=== PATIENT | female | born 1945 | race Caucasian/White ===

== ENCOUNTER 2016-11-17 09:56 | Emergency (ER) | payer MEDICARE ==
[2016-11-17 10:46] VITALS: BP 145/77
--- NOTE | 2016-11-17 11:05 | UC ---
Respiratory Complaint HPI - HPI Summary HPI Summary: "11/13 pt began with a sore throat, nose itching, sneezing. now c/o chest congestion and painful cough". + h/o asthma - takes advair and alb prn. Used albuterol prior to coming in with relief. she has been using it regularly while sick. No fevers or chills. + wheezing. - History of Current Complaint Chief Complaint: UCGeneralIllness Stated Complaint: UPPER RESPIRATORY Time Seen by Provider: 11/17/16 11:03 - Allergies/Home Medications Allergies/Adverse Reactions: Allergies Allergy/AdvReac Type Severity Reaction Status Date / Time Levofloxacin Allergy Swelling Verified 11/17/16 10:40 Sulfa Antibiotics Allergy Hives Verified 11/17/16 10:41 Home Medications: Home Medications Albuterol HFA INHALER* [Ventolin HFA Inhaler*] 1 11/17/16 [History] Fluticasone-Salmeterol 500-50* [Advair Diskus 500-50*] 11/17/16 [History] PMH/Surg Hx/FS Hx/Imm Hx Previously Healthy: Yes Cardiovascular History Of: Denies: Pacemaker/ICD Respiratory History Of: Reports: Asthma - Surgical History Surgical History: Yes Surgery Procedure, Year, and Place: RT KNEE ARTHROSCOPY FOR TORN MENISCUS 2001 AT [facility], TMJ, TONSILS,TUBAL, JAW SURGERY - Family History Known Family History: Negative: Respiratory Disease - no asthma - Social History Alcohol Use: Occasionally Substance Use Type: None Smoking Status (MU): Never Smoked Tobacco Review of Systems Constitutional: Negative, Fatigue Skin: Negative Eyes: Negative ENT: Negative, Sore Throat Respiratory: Cough Cardiovascular: Negative Gastrointestinal: Negative Genitourinary: Negative Motor: Negative Neurovascular: Negative Musculoskeletal: Negative Neurological: Negative Psychological: Negative All Other Systems Reviewed And Are Negative: Yes Physical Exam Triage Information Reviewed: Yes Appearance: Well-Appearing, No Pain Distress, Well-Nourished Vital Signs: Initial Vital Signs Temp 99.8 F 11/17/16 10:32 Pulse 93 11/17/16 10:32 Resp 18 11/17/16 10:32 BP 145/77 11/17/16 10:32 Pulse Ox 95 11/17/16 10:32 Vital Signs Reviewed: Yes Eye Exam: Normal ENT Exam: Normal ENT: Positive: Pharyngeal erythema - +PND, no exudate., TMs normal, Other: - no sinus tenderness. Negative: Tonsillar swelling, Tonsillar exudate, Muffled/ hoarse voice Dental Exam: Normal Neck exam: Normal Neck: Positive: Supple, Nontender, No Lymphadenopathy Respiratory Exam: Normal Respiratory: Positive: Lungs clear, Decreased breath sounds. Negative: No respiratory distress, No accessory muscle use, Crackles, Rhonchi, Stridor, Wheezing Cardiovascular Exam: Normal Cardiovascular: Positive: RRR, No Murmur, Pulses Normal, Brisk Capillary Refill Abdomen Description: Positive: Nontender, Soft Musculoskeletal Exam: Normal Neurological Exam: Normal Psychological Exam: Normal Skin Exam: Normal UC Diagnostic Evaluation - Laboratory O2 Sat by Pulse Oximetry: 95 Respiratory Course/Dx - Course Course Of Treatment: She has used prednisone without difficulty in past. We discusse risks of prednisone including but not limited to anxiety, agitation, insomnia, GI upset, elevated blood pressures and blood sugar readings, adrenal crisis and avascular necrosis of the hip. Low dose medrol dose pack givem. use alb q4-6 hrs while sick. f/u if sx worsen. - Differential Dx/Diagnosis Differential Diagnosis/HQI/PQRI: Asthma, Bronchitis, Lower Resp Infection, Sinusitis Provider Diagnoses: asthmatic bronchitis Discharge - Discharge Plan Condition: Stable Disposition: HOME Prescriptions: Amoxicillin (*) [Amoxicillin 875 MG (*)] 875 mg PO BID #20 tab Methylprednisolone [Medrol Dosepak 4 MG*] 4 mg PO DAILY #1 jose a Patient Education Materials: Asthma (ED), Acute Bronchitis (ED) Referrals: Dm Godfrey MD [Primary Care Provider] - 3 Days Additional Instructions: Make sure to take a probiotic daily while you are on the antibiotic.
== END 2016-11-17 11:19 | disposition home or self-care (01) ==
LOC: UCCORT 09:56
DX: J45.909 Unspecified asthma, uncomplicated (principal); Z88.1 Allergy status to other antibiotic agents
CPT/HCPCS: 99211; G0463

== ENCOUNTER 2017-04-04 16:30 | Emergency (ER) | payer MEDICARE ==
[2017-04-04 17:21] VITALS: BP 136/76
--- NOTE | 2017-04-04 17:45 | UC ---
Respiratory Complaint HPI - HPI Summary HPI Summary: Patient is a 71yo F with a hx of COPD/Bronchitis with a 1 week history of cough , congestion, sputum production and sinus pressure. Hx of sinusitis, most recently treated in October with antibiotics. She is a patient of . CT scan of the chest from October is most recent imaging study. Denies fevers, sweats, chills or other signs of a systemic illness. She has not been taking cough medication because she wants to continue to cough up the phlegm. Denies head pressure. Denies neck pain or stiff neck. - History of Current Complaint Chief Complaint: UCGeneralIllness Stated Complaint: UPPER RESPIRATORY Time Seen by Provider: 04/04/17 17:10 Hx Obtained From: Patient Hx Last Menstrual Period: N/A ?: No Onset/Duration: Sudden Onset Timing: Constant Severity Initially: Moderate Severity Currently: Moderate Pain Intensity: 0 Pain Scale Used: 0-10 Numeric Character: Cough: Productive Associated Signs And Symptoms: Positive: Dyspnea, Nasal Congestion, Sinus Discomfort - Risk Factors Pulmonary Embolism Risk Factors: Negative Cardiac Risk Factors: Negative Pseudomonas Risk Factors: Negative Tuberculosis Risk Factors: Negative - Allergies/Home Medications Allergies/Adverse Reactions: Allergies Allergy/AdvReac Type Severity Reaction Status Date / Time Levofloxacin Allergy Swelling Verified 04/04/17 17:22 Sulfa Antibiotics Allergy Hives Verified 04/04/17 17:22 Home Medications: Home Medications Fluticasone/Vilanterol MDI(NF) [Breo Ellipta MDI (NF)] 1 puff INH DAILY [History Confirmed 04/04/17] PMH/Surg Hx/FS Hx/Imm Hx Previously Healthy: Yes - Surgical History Surgical History: Yes Surgery Procedure, Year, and Place: RT KNEE ARTHROSCOPY FOR TORN MENISCUS 2001 AT [facility], TMJ, TONSILS,TUBAL, JAW SURGERY - Family History Known Family History: Negative: Respiratory Disease - no asthma Family History: respiratory disease - Social History Alcohol Use: None Substance Use Type: None Smoking Status (MU): Never Smoked Tobacco Have You Smoked in the Last Year: No - Immunization History Most Recent Influenza Vaccination: none Review of Systems Constitutional: Negative Skin: Negative Respiratory: Cough Cardiovascular: Negative Motor: Negative Neurovascular: Negative Neurological: Negative Psychological: Negative Is Patient Immunocompromised?: No All Other Systems Reviewed And Are Negative: Yes Physical Exam Triage Information Reviewed: Yes Appearance: Well-Appearing, Well-Nourished Vital Signs: Initial Vital Signs Temp 97.6 F 04/04/17 17:17 Pulse 82 04/04/17 17:17 Resp 16 04/04/17 17:17 BP 136/76 04/04/17 17:17 Pulse Ox 97 04/04/17 17:17 Vital Signs Reviewed: Yes Eye Exam: Normal Eyes: Positive: Conjunctiva Clear ENT Exam: Normal ENT: Positive: Normal ENT inspection Neck exam: Normal Neck: Positive: Supple, No Lymphadenopathy Respiratory Exam: Normal Respiratory: Positive: Chest non-tender, Lungs clear Cardiovascular Exam: Normal Musculoskeletal Exam: Normal Musculoskeletal: Positive: Strength Intact Neurological Exam: Normal Neurological: Positive: Alert Psychological: Positive: Normal Response To Family, Age Appropriate Behavior Skin Exam: Normal Diagnostic Evaluation - Laboratory O2 Sat by Pulse Oximetry: 97 Respiratory Course/Dx - Course Course Of Treatment: Patient evaluated for cough and congestion. She declines chest xray. Declines cough medication. She is willing to take antibiotic and will try augmentin. She is allergic to sulfa and levaquin. She denies other symptoms including fevers, sweats or chills. This is likely bronchitis with sinusitis, but I cannot r/o PNA without chest xray. Hx of COPD with 1 week cough. She again declines, but given strict return precautions. She is Ok with plan. - Differential Dx/Diagnosis Differential Diagnosis/HQI/PQRI: Bronchitis, Sinusitis Provider Diagnoses: Sinusitis/Bronchitis Discharge - Discharge Plan Condition: Stable Disposition: HOME Prescriptions: Amoxicillin/Clavulanate TAB* [Augmentin TAB 875*] 875 mg PO BID #14 tab Patient Education Materials: Sinusitis (ED), Chronic Bronchitis (ED), Warm Compress or Soak (ED) Referrals: Dm Godfrey MD [Primary Care Provider] - Additional Instructions: Humidifier in the home will help. Tylenol for discomfort. Take all medications as directed. Symptoms should resolve in 1-3 weeks. If symptoms become worse, please come back to or go to the ED. Honey and lemon hot tea Rest plenty of fluids. Take the antibiotic as directed Please return if you develop a fever or worsening cough or shortness of breath
== END 2017-04-04 17:42 | disposition home or self-care (01) ==
LOC: UCCORT 16:30
DX: J40 Bronchitis, not specified as acute or chronic (principal); J32.9 Chronic sinusitis, unspecified; Z88.2 Allergy status to sulfonamides; Z88.1 Allergy status to other antibiotic agents
CPT/HCPCS: 99212; G0463

== ENCOUNTER 2017-04-24 16:37 | Emergency (ER) | payer MEDICARE ==
[2017-04-24 17:08] VITALS: BP 135/81
[2017-04-24] MEDS ORDERED: Lidocaine 1% INJ* 10 MG/ML 30 ML SDV INJ ONE (17:23)
[2017-04-24] MEDS ORDERED: Lidocaine 1%* 5 ML VIAL ONE (17:25)
--- NOTE | 2017-04-24 17:44 | UC ---
Skin Complaint HPI - HPI Summary HPI Summary: Today she had a small vein of the left leg start bleeding. Jazmin has had bleeding there in the past well when she nicked it with a razor while shaving her legs. she has no bleeding disorders and is not on any blood thinners. No other bleeding from other locations and no fevers or night sweats. No unintentional wt loss. - History of Current Complaint Chief Complaint: UCLowerExtremity Time Seen by Provider: 04/24/17 17:14 Stated Complaint: LEFT LEG VEIN BLEED Hx Obtained From: Patient Hx Last Menstrual Period: n/a Onset/Duration: Sudden Onset, Lasting Hours Skin Exposure Onset/Duration: Hours Ago Timing: Constant Onset Severity: Moderate Current Severity: Moderate Location: Discrete Aggravating Factor(s): Nothing Alleviating Factor(s): Other - compression dressing. Associated Signs & Symptoms: Positive: Negative - Allergy/Home Medications Allergies/Adverse Reactions: Allergies Allergy/AdvReac Type Severity Reaction Status Date / Time Levofloxacin Allergy Swelling Verified 04/24/17 17:08 Sulfa Antibiotics Allergy Hives Verified 04/24/17 17:08 Review of Systems Skin: Other - bleeding varicose vein. All Other Systems Reviewed And Are Negative: Yes PMH/Surg Hx/FS Hx/Imm Hx Previously Healthy: Yes - Surgical History Surgical History: Yes Surgery Procedure, Year, and Place: RT KNEE ARTHROSCOPY FOR TORN MENISCUS 2002 AT [facility], TMJ, TONSILS,TUBAL, JAW SURGERY - Family History Known Family History: Positive: Other - No bleeding disorders. Negative: Respiratory Disease - no asthma Family History: respiratory disease - Social History Occupation: Employed Full-time Alcohol Use: Rare Substance Use Type: None Smoking Status (MU): Never Smoked Tobacco Have You Smoked in the Last Year: No - Immunization History Most Recent Influenza Vaccination: none Physical Exam Triage Information Reviewed: Yes Appearance: Well-Appearing, No Pain Distress, Well-Nourished Vital Signs: Initial Vital Signs Temp 98.4 F 04/24/17 17:03 Pulse 74 04/24/17 17:03 Resp 18 04/24/17 17:03 BP 135/81 04/24/17 17:03 Pulse Ox 97 04/24/17 17:03 Vital Signs Reviewed: Yes ENT: Positive: Normal ENT inspection Neck exam: Normal Neck: Positive: Supple, Nontender, No Lymphadenopathy Respiratory Exam: Normal Respiratory: Positive: Chest non-tender, Lungs clear, Normal breath sounds, No respiratory distress, No accessory muscle use Cardiovascular: Positive: RRR, No Murmur, Pulses Normal Abdomen Description: Positive: Nontender, No Organomegaly, Soft Musculoskeletal Exam: Normal Musculoskeletal: Positive: Strength Intact, ROM Intact, No Edema Neurological Exam: Normal Neurological: Positive: Alert, Muscle Tone Normal. Negative: Fatigued Psychological: Positive: Age Appropriate Behavior Skin Exam: Other - left medial ankle small bleeding vein. Laceration Repair - Laceration Repair 1 Description: Linear Laceration Size After Repair: Length (cm) - <1mm small bleeding varicose vein. Modified For Repair: No Type Injection: Local Anesthesia Used: 1.0% Lido Cleansing Completed Via Routine Prep: Yes Irrigation With Pressure Irrigation Device: No Closure Material: Sutures Closure Method: Single Layer Suture Of: Skin Suture Type: Prolene - 5-0. one single interrupted. Course/Dx - Diagnoses Provider Diagnoses: bleeding vein. suture repair. Discharge - Discharge Plan Condition: Good Disposition: HOME Patient Education Materials: Varicose Veins (ED) Referrals: Dm Godfrey MD [Primary Care Provider] - 3 Days Additional Instructions: dressing change every day and keep covered suture removal in one day.
== END 2017-04-24 17:56 | disposition home or self-care (01) ==
LOC: UCCORT 16:37
DX: I83.892 Varicose veins of left lower extremity with other complications (principal); Z88.1 Allergy status to other antibiotic agents; Z88.2 Allergy status to sulfonamides
CPT/HCPCS: 12001; 99211; G0463; J2001

== ENCOUNTER 2017-04-30 16:37 | Emergency (ER) | payer MEDICARE ==
[2017-04-30 17:39] VITALS: BP 151/62
--- NOTE | 2017-04-30 18:00 | UC ---
HPI Wound/Suture Re-check - HPI Summary HPI Summary: patient has suture placed in the inner left leg 5 days ago. site is asymptomatic - History Of Current Complaint Chief Complaint: UCLaceration Stated Complaint: SUTURE REMOVAL Time Seen by Provider: 04/30/17 17:35 Hx Obtained From: Patient Hx Last Menstrual Period: n/a Onset/Duration: Sudden Onset, Lasting Days Severity: Mild - Allergies/Home Medications Allergies/Adverse Reactions: Allergies Allergy/AdvReac Type Severity Reaction Status Date / Time Levofloxacin Allergy Swelling Verified 04/30/17 17:39 Sulfa Antibiotics Allergy Hives Verified 04/30/17 17:39 Home Medications: Home Medications Ojhacaz-Yaoqmozzimoee-Iucrucsa [Excedrin Extra Strength] 1 tab PO ONCE PRN 04/30 [History Confirmed 04/30/17] Multiple Vitamins W/ Minerals [Multivitamin Adults] 1 tab PO DAILY 04/30/17 [ History Confirmed 04/30/17] PMH/Surg Hx/FS Hx/Imm Hx Previously Healthy: Yes - Surgical History Surgical History: Yes Surgery Procedure, Year, and Place: RT KNEE ARTHROSCOPY FOR TORN MENISCUS 2001 AT [facility], TMJ, TONSILS,TUBAL, JAW SURGERY - Family History Known Family History: Positive: Other - No bleeding disorders. Negative: Respiratory Disease - no asthma Family History: respiratory disease - Social History Alcohol Use: Rare Substance Use Type: None Smoking Status (MU): Never Smoked Tobacco Have You Smoked in the Last Year: No - Immunization History Most Recent Influenza Vaccination: none Most Recent Tetanus Shot: unknown Review of Systems Constitutional: Negative Skin: Other - 1 stitch Eyes: Negative ENT: Negative Respiratory: Negative Cardiovascular: Negative Gastrointestinal: Negative Genitourinary: Negative Motor: Negative Neurovascular: Negative Musculoskeletal: Negative Neurological: Negative Psychological: Negative Is Patient Immunocompromised?: No All Other Systems Reviewed And Are Negative: Yes Physical Exam Triage Information Reviewed: Yes Appearance: Well-Appearing, No Pain Distress, Well-Nourished Vital Signs: Initial Vital Signs Temp 97.3 F 04/30/17 17:31 Pulse 65 04/30/17 17:31 Resp 18 04/30/17 17:31 BP 151/62 04/30/17 17:31 Vital Signs Reviewed: Yes Eye Exam: Normal ENT Exam: Normal Dental Exam: Normal Neck exam: Normal Respiratory Exam: Normal Cardiovascular Exam: Normal Abdominal Exam: Normal Bowel Sounds: Positive: Present Musculoskeletal Exam: Normal Neurological Exam: Normal Psychological Exam: Normal Skin: Positive: Other - 1 stich in right ankle non red, non tender Course/Dx - Course Course Of Treatment: hx obtained, exam performed ,meds reviewed, suture removed - Differential Dx - Laceration/Wound Provider Diagnoses: suture removal Discharge - Discharge Plan Condition: Stable Disposition: HOME Patient Education Materials: Stitches Removal (ED) Referrals: Dm Godfrey MD [Primary Care Provider] - Additional Instructions: 1. allow the area to stay free from friction of the pant legs, 2. NO need for any cream or ointment, may cover with a bandaid if needed.
== END 2017-04-30 18:02 | disposition home or self-care (01) ==
LOC: UCCORT 16:37
DX: Z48.02 Encounter for removal of sutures (principal); Z88.1 Allergy status to other antibiotic agents; Z88.2 Allergy status to sulfonamides

== ENCOUNTER 2018-06-26 10:35 | Emergency (ER) | payer MEDICARE ==
[2018-06-26 10:49] VITALS: BP 162/85
--- NOTE | 2018-06-26 11:00 | UC ---
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 She tells me that she was moving firewood around and a piece of stray wood lacerated his left palm. Washed the area and applied pressure and came to . Unsure date of last tetanus. - History Of Current Complaint Chief Complaint: UCLaceration Stated Complaint: HAND LAC Time Seen by Provider: 06/26/18 10:59 Hx Obtained From: Patient Hx Last Menstrual Period: n/a Laceration Location: Hand Severity: Mild Pain Intensity: 2 Pain Scale Used: 0-10 Numeric - Allergies/Home Medications Allergies/Adverse Reactions: Allergies Allergy/AdvReac Type Severity Reaction Status Date / Time levofloxacin Allergy Swelling Verified 06/26/18 10:49 Sulfa (Sulfonamide Allergy Hives Verified 06/26/18 10:49 Antibiotics) PMH/Surg Hx/FS Hx/Imm Hx Respiratory History: COPD, Asthma - Surgical History Surgical History: Yes Surgery Procedure, Year, and Place: RT KNEE ARTHROSCOPY FOR TORN MENISCUS 2002 AT [facility], TMJ, TONSILS,TUBAL, JAW SURGERY - Family History Known Family History: Positive: Respiratory Disease - Social History Occupation: Retired Lives: With Family Alcohol Use: Rare Substance Use Type: None Smoking Status (MU): Never Smoked Tobacco Have You Smoked in the Last Year: No - Immunization History Most Recent Influenza Vaccination: none Most Recent Tetanus Shot: unknown Review of Systems All Other Systems Reviewed And Are Negative: Yes Constitutional: Positive: Negative Skin: Positive: Other - Laceration left palm Respiratory: Positive: Negative Cardiovascular: Positive: Negative Neurovascular: Positive: Negative Neurological: Positive: Negative Psychological: Positive: Negative Physical Exam - Summary Physical Exam Summary: GENERAL: NAD. WDWN. No pain distress. SKIN: LEFT PALM: Minor superficial laceration on palm at base of 4th digit 4mm stellate. Well approximated at rest. Clean wound. NECK: Supple. Nontender. No lymphadenopathy. CHEST: No accessory muscle use. Breathing comfortably and in no distress. CV: Pulses intact. Cap refill <2seconds NEURO: Alert. PSYCH: Age appropriate behavior. Triage Information Reviewed: Yes Vital Signs: Initial Vital Signs Temp 98.3 F 06/26/18 10:46 Pulse 84 06/26/18 10:46 Resp 16 06/26/18 10:46 BP 162/85 06/26/18 10:46 Pulse Ox 100 06/26/18 10:46 Vital Signs Reviewed: Yes Laceration Repair - Laceration Repair 1 Description: Stellate Laceration Size After Repair: Length (cm) - 0.4 Modified For Repair: No Cleansing Completed Via Routine Prep: Yes Closure Material: Skin Adhesive Laceration Course/Dx - Course/Dx Course Of Treatment: Wound was cleansed with NS. Well approximated at rest and does not open with flexion/extension. Dermabond applied. tdap updated today. Wound bandaged with a band-aid. - Diagnosis Provider Diagnosis: Laceration of left palm Discharge - Sign-Out/Discharge Documenting (check all that apply): Patient Departure All imaging exams completed and their final reports reviewed: No Studies - Discharge Plan Condition: Stable Disposition: HOME Patient Education Materials: Laceration (ED), Skin Adhesive Care (ED) Referrals: Yesenia Cook MD [Primary Care Provider] - Additional Instructions: If you develop a fever, shortness of breath, chest pain, new or worsening symptoms - please call your PCP or go to the ED. Your blood pressure was high at todays visit. Please see your primary provider within 4 weeks for recheck and re-evaluation. Keep the area covered with a band-aid until well healed - Billing Disposition and Condition Condition: STABLE Disposition: Home - Attestation Statements Provider Attestation: I was available for consult. This patient was seen by the JUAN. The patient was not presented to, seen by, or examined by me. -Yonatan
[2018-06-26] MEDS: Tetan/Diph/Pertus SYR(Tdap)* 0.5 ML SYR(BOOSTRIX) use SYR IM ONE (11:07)
== END 2018-06-26 11:20 | disposition home or self-care (01) ==
LOC: UCEAST 10:35
DX: W45.8XXA Other foreign body or object entering through skin, initial encounter (principal); Y93.89 Activity, other specified; Y92.009 Unspecified place in unspecified non-institutional (private) residence as the place of occurrence of the external cause; S61.412A Laceration without foreign body of left hand, initial encounter; Z88.1 Allergy status to other antibiotic agents; Z88.2 Allergy status to sulfonamides
CPT/HCPCS: 12001; 90471; 90715; 99212; G0463

== ENCOUNTER 2019-08-17 10:24 | Emergency (ER) | payer MEDICARE ==
--- OUTSIDE RECORDS SUMMARY | 2019-08-17 10:43 | XMS REPORT | Continuity of Care Document ---
:1945 External Reference #:[id number] Author Name Manuel Peace M.D. Address [address] [place] [id number] Care Team Providers Name Role Phone Yesenia Cook M.D. - Internal Care Team Information Lining Repairer [phone] Medicine Problems Active Problems Provider Date Asthma Onset: Arthritis Onset: Crystalline deposits in vitreous Katie Crowder O.D. Onset: 12/17/2016 Nuclear senile cataract Katie Crowder O.D. Onset: 12/17/2016 Benign neoplasm of choroid Katie Crowder O.D. Onset: 12/17/2016 Social History Type Date Description Comments Sex Unknown ETOH Use Rarely consumes alcohol Tobacco Use Start: Unknown Patient has never smoked Recreational Drug Use Denies Drug Use Smoking Status Reviewed: 07/14/19 Patient has never smoked Allergies, Adverse Reactions, Alerts Active Allergies Reaction Severity Comments Date Sulfa 12/15/2016 Levothyroxine 05/05/2018 Medications Active Medications SIG Qnty Indications Ordering Provider Date Refresh Optive as needed Katie Haddad 05/04/2018 0.5-0.9% Sacha Crowder Solution Ventolin HFA Dm Godfrey 108(90Base) M.D. mcg/Act Aerosol Multivitamin Adult Unknown Tablets Breo Ellipta Inhale 1 puff By Unknown Mouth Every Day 100-25mcg/Inh Aerosol Aspirin Adult Low Dose daily Unknown 81mg Tablets DR Albuterol Sulfate HFA Karen Nash M.D. 108(90Base) mcg/Act Aerosol Albuterol Sulfate Inhale The Unknown Contents Of 1 Vial (2.5mg/3ML) 0.083% Via Nebulizer Four Nebulizer Times Daily as Needed Immunizations Description No Information Available Vital Signs Description No Information Available Results Description No Information Available Procedures Description No Information Available Medical Devices Description No Information Available Encounters Description No Information Available Assessments Date Code Description Provider 07/14/2019 H25.13 Age-related nuclear cataract, bilateral Manuel Peace M.D. 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 Plan of Treatment 07/14/2019 - Manuel Peace M.D.H25.13 Age-related nuclear cataract, bilateralComments:Smoking can increase the risk of developing or worsening any eye related disease, as well as affect your overall health. If you are a smoker , we strongly recommend that you quit.If you are not a smoker, we strongly recommend that you do not start. You have been diagnosed with cataracts. If you are happy with your vision as it is now, then we will see you at your next scheduled appointment. If you feel like your vision is getting worse before your scheduled appointment, please call [facility] at [phone].Follow up:1 Year Follow Up DFE You can expect to have your eyes dilated at your next visit. If Dr. Peace orders any additional testing, it may require extra time. We recommend that you bring sunglasses, as dilation drops often make you light sensitive until they wear off. We always recommend you bring someone to drive you home if you are uncomfortable driving with your eyes dilated. If you have any questions before your next visit, feel free to call our office at .H43.23 Crystalline deposits in vitreous body, [id number] Benign neoplasm of left choroidComments:You have a nevus in your left eye. This is similar to a mole on your skin. Typically this will not change, but I will monitor it. Functional Status Description No Information Available Mental Status Description No Information Available Referrals Description No Information Available
--- OUTSIDE RECORDS SUMMARY | 2019-08-17 10:43 | XMS REPORT | Continuity of Care Document ---
:1945 External Reference #:[id number] Author Name Karen Nash MD (transmitted by agent of provider Loretta Burgos) Address [address], [address] [place] [address] Care Team Providers Name Role Phone Yesenia Cook MD - Internal Care Team Information Cigar Roller Medicine Problems Active Problems Provider Date Acute bronchitis due to Hemophilus Ludwig Danielle M.D. 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/2018 Social History Type Date Description Comments Sex Unknown Tobacco Use Start: Unknown Never Smoked Cigarettes Tobacco Use Start: Unknown Never Smoked Cigars Tobacco Use Start: Unknown Never Smoked A Pipe Smoking Status Reviewed: 07/03/19 Never Smoked A Pipe Smokeless Tobacco Never Used Smokeless Tobacco ETOH Use Rarely consumes alcohol Tobacco Use Start: Unknown Patient has never smoked Recreational Drug Use Denies Drug Use Exercise Type/Frequency Exercises regularly 3x week Allergies, Adverse Reactions, Alerts Active Allergies Reaction Severity Comments Date Sulfa Antibiotics Urticaria Urticaria 07/07/2015 Levofloxacin joint pain/swelling Joint pain swelling 12/20/2015 Medications Active Medications SIG Qnty Indications Ordering Date Provider Oxygen please use o2 at 1units R09.02 Karen Nash, 07/03/2019 Misc 2l/min during MD exertion, pls provide pt with portable o2 concentrator Prednisone 2 tabs daily for 7 21units J45.901 Karen Nash, 04/20/2019 10mg days, 1 tab daily (21) TBPK for 2 weeks Nebulizer use for albuterol 1units J45.21 Nick Traylor NP 08/21/2018 Device nebulized solution up to 4 times a day. Nebulizer for use 4 times QS J45.21 Nick Traylor NP 08/21/2018 Kit/Tubing/Mouthpie daily as needed ce Kit Albuterol Sulfate 1 vial via nebulizer 75ml J45.21 Nick Traylor NP 2018 4 times daily as (2.5mg/3ML) 0.083% needed Nebulizer Ventolin HFA 1 unit puff every 6 24gm Karen Nash, 05/28/2018 hours as needed 108(90Base) mcg/Act Aerosol Breo Ellipta Inhale 1 puff By 60units Karen Nash, 12/26/2016 Mouth Every Day 100-25mcg/Inh Aerosol Multiple Vitamins 1 by mouth every day Unknown Tablets Tylenol 8 Hour 1 tab every 6 hours Unknown as needed for pain 650mg Tablets ER Ibuprofen 200 400-600mg every 6 Unknown 200mg hours as needed for Tablets pain. Aspirin 81 Low Dose 1 by mouth every day Unknown 81mg Chewtabs History Medications Augmentin one by mouth 20tabs H66.92 Montse Ruby, 04/10/2019 - 875-125mg every 12 hours N.P. 04/20/2019 Tablets for ten days Medications Administered in Office Medication SIG Qnty Indications Ordering Provider Date Celestone 3 mg and 3mg Louie Caal MD 08/01/2017 Injection Immunizations Description No Information Available Vital Signs Date Vital Result Comment 07/03/2019 9:05am Height 63 inches 5'3" Weight 133.00 lb at home Heart Rate 78 /min BP Systolic Sitting 134 mmHg BP Diastolic Sitting 60 mmHg O2 % BldC Oximetry 92 % BMI (Body Mass Index) 23.6 kg/m2 04/20/2019 9:11am Height 63 inches 5'3" Weight 132.00 lb Heart Rate 73 /min BP Systolic Sitting 130 mmHg BP Diastolic Sitting 70 mmHg O2 % BldC Oximetry 93 % BMI (Body Mass Index) 23.4 kg/m2 Results Test Acquired Date Facility Test Result H/L Range Note Order 07/03/2019 [facility] In-House 6 Minute Walk <pending> Sputum Culture 04/21/2019 [facility] Sputum Culture SEE RESULT 1, 2 & Sensit[address] Gram Stain BELOW [place], [place] [id number] [phone] 1 [id number] 2 SEE RESULT BELOW Name: BRYAN WALLER : [address]: Karen Nash MD Acct: [id number] Unit: [id number] AGE: 73 Location: [facility] Re04/21/19 SEX: F Status: REG REF SPEC: [id number] BONNY: 04/21/[address] [facility] [address]: Karen Nash MD REQ: [id number] RECD: 04/21/196925 STATUS: COMP _ SOURCE: SPUTUM,EXP SPDESC: ORDERED: Sputum Cult/GS COMMENTS: [id number] Procedure Result Reported Site Sputum Smear Final 04/22/19- 0837 ML 4+ Neutrophils 3+ Epithelial Cells 2+ Gram Positive Cocci in Clusters, resembling Staph 2+ Gram Positive Cocci in Chains, resembling Strep Sputum Culture Final 04/23/19- 0936 ML Organism 1 NORMAL RODRIGO Quantity 3+ * ML - Main Lab . END OF REPORT DEPARTMENT OF PATHOLOGY, [address] [place] [address] Pierre Oliveros M.D. 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 unspecified, left Ccmob ear Assessments Date Code Description Provider 07/03/2019 R06.02 Shortness of breath Karen Nash MD 07/03/2019 J45.909 Unspecified asthma, uncomplicated Karen Nash MD 07/03/2019 J98.4 Other disorders of lung Karen Nash MD 07/03/2019 R09.02 Hypoxemia Karen Nash MD 04/20/2019 J45.901 Unspecified asthma with (acute) exacerbation Karen Nash MD 04/20/2019 J44.9 Chronic obstructive pulmonary disease, Karen Nash MD unspecified 04/20/2019 J98.4 Other disorders of lung Karen Nash MD 04/10/2019 H66.92 Otitis media, unspecified, left ear Montse Ruby, N.P. 02/04/2019 J45.909 Unspecified asthma, uncomplicated Karen Nash MD 02/04/2019 R06.02 Shortness of breath Karen Nash MD Plan of Treatment 07/03/2019 - Karen Nash, MDR06.02 Shortness of breathNew Orders:Stress Test , Exercise Echocardiogram, Ordered: 07/03/19Follow up:3 azgdmR27.909 Unspecified asthma, zuupvqyexuvlrJ40.4 Other disorders of lungR09.02 HypoxemiaNew Medication:Oxygen - please use o2 at 2l/min during exertion, pls provide pt with portable o2 concentrator Functional Status Description No Information Available Mental Status Description No Information Available Referrals Description No Information Available
[2019-08-17 11:02] LABS: ABS Eosinophils 0.4 10^3/ul (0-0.6); ABS Lymphocytes 1.5 10^3/ul (1.0-4.8); ABS Monocytes 0.6 10^3/ul (0-0.8); ABS Neutrophils 3.8 10^3/ul (1.5-7.7); Hematocrit 48 % (35-47); Hemoglobin 16.1 g/dL (12.0-16.0); Lymphocyte % 23.8 %; Mean Corpuscular HGB Conc 34 g/dL (31-36); Mean Corpuscular Hemoglobin 30 pg (27-31); Mean Corpuscular Volume 90 fL (80-97); Mean Platelet Volume 8.3 fL (7.4-10.4); Nucleated Red Blood Cells % 0.1; Platelet Count 235 10^3/uL (150-450); Red Blood Count 5.38 10^6 /uL (3.70-4.87); Red Cell Distribution Width 13 % (10-15); White Blood Count 6.3 10^3/uL (3.5-10.8)
[2019-08-17 11:13] LABS: INR 0.91 (0.82-1.09)
--- NOTE | 2019-08-17 11:14 | ED ---
Shortness of Breath - HPI Summary HPI Summary: The patient is a 74 y/o F presenting to [facility] with a cc of worsening exertional SOB for the last few months with abnormal VQ scan today. She reports that she has a history of COPD and follows with Dr. Nash from pulmonology. Today, she was scheduled for a VQ scan, which showed high probability for a blood clot. She was recommended to additionally have a CTA, but there were insurance issues at the office, so she was advised to come to the ED. No prior history of PEs or DVTs. She denies fevers or lower extremity edema. She feels well in the ED. PMHx : asthma. FHx: respiratory disease. Nonsmoker, rare EtOH, no substance use. Medications reviewed. Allergies noted. - History of Current Complaint Chief Complaint: EDShortnessOfBreath Time Seen by Provider: 08/17/19 10:37 Hx Obtained From: Patient Onset/Duration: Gradual Onset, Lasting Weeks, Still Present Current Severity: None Dyspnea At: Exertion Aggravating Factors: Other - exertion Alleviating Factors: Nothing Associated Signs & Symptoms: Negative - Allergy/Home Medications Allergies/Adverse Reactions: Allergies Allergy/AdvReac Type Severity Reaction Status Date / Time levofloxacin Allergy Swelling Verified 08/17/19 10:34 Sulfa (Sulfonamide Allergy Hives Verified 08/17/19 10:34 Antibiotics) PMH/Surg Hx/FS Hx/Imm Hx Endocrine/Hematology History: Denies: Hx Diabetes Cardiovascular History: Denies: Hx Hypertension, Hx Pacemaker/ICD Respiratory History: Reports: Hx Asthma, Hx Chronic Obstructive Pulmonary Disease (COPD) History: Denies: Hx Dialysis, Hx Renal Disease Sensory History: Denies: Hx Hearing Aid Psychiatric History: Denies: Hx Panic Disorder - Cancer History Hx Chemotherapy: No Hx Radiation Therapy: No - Surgical History Surgical History: Yes Surgery Procedure, Year, and Place: RT KNEE ARTHROSCOPY FOR TORN MENISCUS 2002 AT [facility], TMJ, TONSILS,TUBAL, JAW SURGERY Infectious Disease History: No Infectious Disease History: Denies: Traveled Outside the [place] in Last 30 Days - Family History Known Family History: Positive: Respiratory Disease, Other - No bleeding disorders. Family History: respiratory disease - Social History Alcohol Use: Rare Hx Substance Use: No Substance Use Type: Reports: None Hx Tobacco Use: No Smoking Status (MU): Never Smoked Tobacco Have You Smoked in the Last Year: No Review of Systems Negative: Fever Positive: Shortness Of Breath - chronic Negative: Edema All Other Systems Reviewed And Are Negative: Yes Physical Exam - Summary Physical Exam Summary: Constitutional: Well-developed, Well-nourished, Alert. (-) Distressed Skin: Warm, Dry HENT: Normocephalic; Atraumatic Eyes: Conjunctiva normal Neck: Musculoskeletal ROM normal neck. (-) JVD, (-) Stridor, (-) Nuchal rigidity Cardio: Rhythm regular, rate normal, Heart sounds normal; Intact distal pulses; Radial pulses are 2+ and symmetric. (-) Murmur Pulmonary/Chest wall: Effort normal. (-) Respiratory distress, (-) Wheezes, (-) Rales Abd: Soft, (-) tenderness, (-) Distension, (-) Guarding, (-) Rebound Musculoskeletal: (-) Edema Lymph: (-) Cervical adenopathy Neuro: Alert, Oriented x3 Psych: Mood and affect Normal Triage Information Reviewed: Yes Vital Signs On Initial Exam: Initial Vitals Temp Pulse Resp BP Pulse Ox 98.0 F 73 20 185/98 98 08/17/19 10:31 08/17/19 10:31 08/17/19 10:31 08/17/19 10:31 08/17/19 10:31 Vital Signs Reviewed: Yes Procedures - Sedation Patient Received Moderate/Deep Sedation with Procedure: No Diagnostics - Vital Signs Vital Signs Temp Pulse Resp BP Pulse Ox 08/17/19 10:31 98.0 F 73 20 185/98 98 - Laboratory Lab Results: Lab Results 08/17/19 Range/Units 10:52 WBC 6.3 (3.5-10.8) 10^3/uL RBC 5.38 H (3.70-4.87) 10^6 /uL Hgb 16.1 H (12.0-16.0) g/dL Hct 48 H (35-47) % MCV 90 (80-97) fL MCH 30 (27-31) pg MCHC 34 (31-36) g/dL RDW 13 (10-15) % Plt Count 235 (150-450) 10^3/uL MPV 8.3 (7.4-10.4) fL Neut % (Auto) 59.7 % Lymph % (Auto) 23.8 % [place] % (Auto) 10.1 % Eos % (Auto) 6.0 % Baso % (Auto) 0.4 % Absolute Neuts (auto) 3.8 (1.5-7.7) 10^3/ul Absolute Lymphs (auto) 1.5 (1.0-4.8) 10^3/ul Absolute Monos (auto) 0.6 (0-0.8) 10^3/ul Absolute Eos (auto) 0.4 (0-0.6) 10^3/ul Absolute Basos (auto) 0.0 (0-0.2) 10^3/ul Absolute Nucleated RBC 0.0 10^3/ul Nucleated RBC % 0.1 Result Diagrams: 08/17/19 10:52 08/17/19 10:52 Lab Statement: Any lab studies that have been ordered have been reviewed, and results considered in the medical decision making process. - CT Chest/Thorax CTA CT Interpretation Completed By: Radiologist Summary of CT Findings: Impression: 1. No pulmonary arterial filling defect to suggest pulmonary embolism. 2. Bronchial wall thickening most pronounced along the lower lungs bilaterally. 3. Again noted is diffuse pulmonary parenchymal nodularity similar to the June 292018 examination. The recommendations for follow-up and management of incidentally detected Multiple pulmonary nodules greater than or equal to 6 mm but less than or equal to 8 mm in. Size, in a patient without a history of malignancy, include follow-up CT in 3-6 months , then consider again at 18-24 months for a low-risk patient or follow-up CT in 3-6 months, then again at 18-24 months for a high risk patient. Notes: size = average length and width; high risk is defined as a history of smoking or other known risk factors for lung cancer; low risk is defined as minimal or absent history of smoking or other known risk factors. ED physician has reviewed this report. - EKG 1053 Cardiac Rate: NL - 66 BPM EKG Rhythm: Sinus Rhythm EKG Comparison: Other - no prior for comparison Summary of EKG Findings: An EKG at 1053 reveals normal sinus rhythm at rate of 66 BPM. T wave inversions in V1 and V2. No STEMI. No prior for comparison. ED physician has reviewed and interpreted this EKG. Re-Evaluation - Re-Evaluation First Eval Re-Evaluation Time: 11:05 Comment: Patient ambulating on RA at 96% O2 Second Eval Re-Evaluation Time: 11:15 Comment: Discussed plan for further testing with questioning the need for CTA based on results of VQ taken prior to visit this morning, as confirmed by Dr. Duran from radiology. Will speak with Dr. Nash from pulmonology, who the patient sees. Third Eval Re-Evaluation Time: 12:45 Comment: Discussed CTA results and plan for d/c Course/Dx - Course Course Of Treatment: 74 y/o F w hx COPD p/w abnormal VQ scan. - d/w Dr. Nash' s office who would like CTA. Labs notable for normal trop, BNP. EKG unremarkable. Ambulatory O2 sat 96%. - CTA w/o PE. - dc w PCP f/u. - Diagnoses Provider Diagnoses: SOB (shortness of breath), Hx of ventilation/perfusion scan - Physician Notifications Discussed Care of Patient With: Karen Nash - pulmonology Instructed by Provider To: Other - I spoke with Dr. Duran concerning whether the patient needs a CTA based on VQ scan earlier today indicating PE, but he does not believe she likely does not need a CTA with positive VQ results [1050] . Dr. Nash is not on-call, but the FRETTED STRING INSTRUMENT REPAIRER at her office states that Dr. Nash would like the patient to have a Chest/Thorax CTA for possible PE [1123]. Discharge ED - Sign-Out/Discharge Documenting (check all that apply): Patient Departure - Patient will be discharged home. - Discharge Plan Condition: Stable Disposition: HOME Patient Education Materials: Shortness of Breath (ED) Referrals: Yesenia Cook MD [Primary Care Provider] - 3 Days Karen Nash MD [Medical Doctor] - 3 Days Additional Instructions: You were seen in the emergency department for an abnormal VQ scan. Your CTA did not show any evidence of blood clots. Please follow up with your primary care doctor in the next 2-3 days and return to the emergency department for worsening trouble breathing, chest pain, or concerning symptoms. It was a pleasure taking care of you today. - Billing Disposition and Condition Condition: STABLE Disposition: Home - Attestation Statements Document Initiated by Scribe: Yes Documenting Scribe: Vikki Smith Provider For Whom Scribe is Documenting (Include Credential): Dr. Carmela Quinn MD Scribe Attestation: I, Vikki Smith, scribed for Dr. Carmela Quinn MD on 08/18/19 at 0347. Scribe Documentation Reviewed: Yes Provider Attestation: The documentation as recorded by the kuldeepibe, Vikki Smith accurately reflects the service I personally performed and the decisions made by me, Dr. Carmela Quinn MD Status of Scribe Document: Viewed
[2019-08-17 11:19] LABS: Albumin 4.3 g/dL (3.2-5.2); Albumin/Globulin Ratio 1.4 (1-3); EGFR African American 85.1 (>60); EGFR Non-African American 70.3 (>60); Potassium 3.9 mmol/L (3.5-5.0); Total Bilirubin 0.7 mg/dL (0.2-1.0); Total Protein 7.3 g/dL (6.4-8.9)
[2019-08-17] MEDS ORDERED: Iohexol 350* (CONTRAST) 500 ML MDV IV ONE (11:40)
[2019-08-17 12:54] VITALS: BP 167/82
== END 2019-08-17 12:51 | disposition home or self-care (01) ==
LOC: ED 10:24
DX: R06.02 Shortness of breath (principal); R91.8 Other nonspecific abnormal finding of lung field; J44.9 Chronic obstructive pulmonary disease, unspecified; Z88.1 Allergy status to other antibiotic agents; Z88.2 Allergy status to sulfonamides
CPT/HCPCS: 36415; 71275; 80053; 83880; 84484; 85025; 85610; 93005; 99282; Q9967

== ENCOUNTER 2020-03-21 17:17 | Inpatient (IN) ==
[2020-03-21] MEDS ORDERED: NS 0.9% 1000 ml BAG 1,000 ML IV.FLUID IV ONE (18:29)
[2020-03-21 18:39] LABS: ABS Lymphocytes 0.3 10^3/ul (1.0-4.8); ABS Monocytes 1.2 10^3/ul (0-0.8); ABS Neutrophils 10.8 10^3/ul (1.5-7.7); Hematocrit 41 % (35-47); Hemoglobin 13.5 g/dL (12.0-16.0); Lymphocyte % 2.5 %; Mean Corpuscular HGB Conc 33 g/dL (31-36); Mean Corpuscular Hemoglobin 29 pg (27-31); Mean Corpuscular Volume 86 fL (80-97); Mean Platelet Volume 7.5 fL (7.4-10.4); Platelet Count 252 10^3/uL (150-450); Red Blood Count 4.74 10^6 /uL (3.70-4.87); Red Cell Distribution Width 13 % (10-15); White Blood Count 12.4 10^3/uL (3.5-10.8)
[2020-03-21] MEDS ORDERED: Cefepime 2 GM in Dextrose 2 GM/50 ML BAG IV ONE (18:45)
[2020-03-21] MEDS ORDERED: metroNIDAZOLE IV 500 MG/100ML 500 MG/100 ML BAG IVPB ONE (18:45)
[2020-03-21 18:48] LABS: Activated Partial Thrombo Time 29.3 seconds (26.0-38.0); INR 1.22 (0.82-1.09)
[2020-03-21 19:15] LABS: ALT 29 U/L (7-52); AST 34 U/L (13-39); Albumin 3.8 g/dL (3.2-5.2); Albumin/Globulin Ratio 1.1 (1-3); Alkaline Phosphatase 129 U/L (34-104); Anion Gap 10 mmol/L (2-11); BUN/Creatinine Ratio 20.5 (8-20); Blood Urea Nitrogen 15 mg/dL (6-24); C Reactive Protein 118.22 mg/L (<8.01); CO2 Carbon Dioxide 24 mmol/L (22-32); Calcium 9.1 mg/dL (8.6-10.3); Chloride 103 mmol/L (101-111); EGFR African American 94.6 (>60); EGFR Non-African American 78.1 (>60); Globulin 3.5 g/dL (2-4); Glucose 132 mg/dL (70-100); Lipase 15 U/L (11.0-82.0); Potassium 3.4 mmol/L (3.5-5.0); Sodium 137 mmol/L (135-145); Total Protein 7.3 g/dL (6.4-8.9)
[2020-03-21 19:48] LABS: Troponin I 0.83 ng/mL (<0.03)
[2020-03-21 20:17] LABS: Urine Appearance Clear; Urine Bilirubin Negative (Negative); Urine Blood Negative (Negative); Urine Color Yellow; Urine Glucose Negative (Negative); Urine Ketones Trace (Negative); Urine Nitrite Negative (Negative); Urine Protein Negative (Negative); Urine Specific Gravity 1.013 (1.010-1.030); Urine Urobilinogen Negative (Negative)
[2020-03-21] MEDS ORDERED: Albuterol 2.5mg/3 ml (0.083%) NEB.SOLN INH PRN (21:27)
[2020-03-21] MEDS ORDERED: Al Hydrox/Mg Hydrox/Simet LIQ 30 ML UDC PO PRN (21:27)
[2020-03-21] MEDS ORDERED: Morphine 2 MG/ML SYRINGE IV PRN (21:27)
[2020-03-21] MEDS ORDERED: Senna TAB 8.6 mg TAB PO PRN (21:27)
[2020-03-21] MEDS ORDERED: Albuterol HFA INHALER 8 gm MDI INH PRN (22:08)
[2020-03-21] MEDS ORDERED: Iohexol 350 (CONTRAST) 500 ML MDV IV ONE (22:36)
[2020-03-21] MEDS ORDERED: Lactated Ringers 1000 ml BAG 1,000 ML IV SCH (23:00)
[2020-03-21 23:06] LABS: Magnesium 1.9 mg/dL (1.9-2.7)
[2020-03-21] MEDS ORDERED: Albuterol/Ipratropium NEB.SOL (2.5/0.5 MG) 3 ML NEB.SOLN ONE (23:17)
[2020-03-21] MEDS: Ondansetron 4 mg VIAL 2 MG/ML 2 ml VIAL IV PRN (23:56)
[2020-03-22 00:08] LABS: Troponin I 0.61 ng/mL (<0.03)
[2020-03-22] MEDS: metroNIDAZOLE IV 500 MG/100ML 500 MG/100 ML BAG IVPB SCH ×2 (04:00→11:39)
[2020-03-22] MEDS: Heparin 5000 UNITS/ML 1 mL VIAL SUBCUT SCH ×3 (05:15→22:32)
[2020-03-22] MEDS ORDERED: Cefepime 2 GM in Dextrose 2 GM/50 ML BAG IV SCH (06:30)
[2020-03-22 07:20] LABS: ABS Lymphocytes 0.2 10^3/ul (1.0-4.8); ABS Monocytes 0.3 10^3/ul (0-0.8); ABS Neutrophils 11.6 10^3/ul (1.5-7.7); Hematocrit 34 % (35-47); Hemoglobin 11.5 g/dL (12.0-16.0); Lymphocyte % 1.3 %; Mean Corpuscular HGB Conc 34 g/dL (31-36); Mean Corpuscular Hemoglobin 30 pg (27-31); Mean Corpuscular Volume 86 fL (80-97); Mean Platelet Volume 7.6 fL (7.4-10.4); Nucleated Red Blood Cells % 0.1; Platelet Count 160 10^3/uL (150-450); Red Blood Count 3.89 10^6 /uL (3.70-4.87); Red Cell Distribution Width 13 % (10-15); White Blood Count 12.1 10^3/uL (3.5-10.8)
[2020-03-22 07:32] LABS: Albumin 2.9 g/dL (3.2-5.2); BUN/Creatinine Ratio 17.9 (8-20); Calcium 7.9 mg/dL (8.6-10.3); EGFR African American 87.6 (>60); EGFR Non-African American 72.4 (>60); Globulin 2.8 g/dL (2-4); HDL Cholesterol 34.6 mg/dL; Potassium 2.8 mmol/L (3.5-5.0); Total Bilirubin 1.5 mg/dL (0.2-1.0); Total Protein 5.7 g/dL (6.4-8.9)
[2020-03-22] MEDS ORDERED: Potassium Chlor 20 meq TAB.ER PO ONE (08:07)
[2020-03-22] MEDS ORDERED: Perflutren Lipid Microsphere 3 ML VIAL ONE (08:11)
[2020-03-22] MEDS ORDERED: Potassium Chloride IV 40 MEQ in Lactated Ringers 1000 ml BAG 1,000 ML IVPB SCH (09:00)
[2020-03-22] MEDS: Mometasone/Formoter 100/5 MDI INH SCH ×2 (09:37→19:58)
[2020-03-22] MEDS ORDERED: KCL 20 MEQ/100 ML IVPREMIX 20 MEQ/100 ML BAG IV ONE (10:16)
[2020-03-22 10:20] LABS: Magnesium 1.6 mg/dL (1.9-2.7)
[2020-03-22] MEDS: Ondansetron 4 mg VIAL 2 MG/ML 2 ml VIAL IV PRN (12:28)
[2020-03-22 16:08] LABS: BUN/Creatinine Ratio 22.9 (8-20); EGFR African American 99.2 (>60); Potassium 4.4 mmol/L (3.5-5.0)
[2020-03-22] MEDS: Lactated Ringers 1000 ml BAG 1,000 ML IV SCH (18:25)
[2020-03-22] MEDS: Meropenem 1 GM PREMIX(*) 1 GM/50 ML BAG IV SCH (22:29)
[2020-03-23] MEDS: Lactated Ringers 1000 ml BAG 1,000 ML IV SCH ×3 (03:30→21:43)
[2020-03-23] MEDS: Meropenem 1 GM PREMIX(*) 1 GM/50 ML BAG IV SCH ×3 (05:54→21:15)
[2020-03-23] MEDS: Heparin 5000 UNITS/ML 1 mL VIAL SUBCUT SCH ×4 (08:04→21:15)
[2020-03-23] MEDS: Mometasone/Formoter 100/5 MDI INH SCH ×2 (08:08→20:05)
[2020-03-23 08:33] LABS: ABS Lymphocytes 0.8 10^3/ul (1.0-4.8); ABS Monocytes 0.6 10^3/ul (0-0.8); ABS Neutrophils 8.8 10^3/ul (1.5-7.7); Eosinophil % 0.2 %; Hematocrit 36 % (35-47); Hemoglobin 12.3 g/dL (12.0-16.0); Lymphocyte % 8.2 %; Mean Corpuscular HGB Conc 34 g/dL (31-36); Mean Corpuscular Hemoglobin 30 pg (27-31); Mean Corpuscular Volume 87 fL (80-97); Mean Platelet Volume 8.8 fL (7.4-10.4); Platelet Count 102 10^3/uL (150-450); Red Blood Count 4.16 10^6 /uL (3.70-4.87); Red Cell Distribution Width 13 % (10-15); White Blood Count 10.3 10^3/uL (3.5-10.8)
[2020-03-23 09:18] LABS: Calcium 8.5 mg/dL (8.6-10.3); EGFR African American 102.6 (>60); EGFR Non-African American 84.8 (>60); Magnesium 1.8 mg/dL (1.9-2.7); Potassium 3.8 mmol/L (3.5-5.0)
[2020-03-23] MEDS ORDERED: Magnesium Sulfate IV 3 GM in NS 0.9% 100 ml BAG 100 ML IVPB ONE (11:30)
[2020-03-23] MEDS ORDERED: cefTRIAXone 2 GM ADDV.VIAL 2 GM in NS 0.9% 100 ml BAG 100 ML IV SCH (17:00)
[2020-03-23 18:31] LABS: Total Bilirubin 0.7 mg/dL (0.2-1.0)
[2020-03-23] MEDS ORDERED: Lactated Ringers 1000 ml BAG 1,000 ML IV ONE (18:55)
[2020-03-23] MEDS ORDERED: Lactated Ringers 500 ml BAG 500 ML IV ONE (18:57)
[2020-03-23 19:23] LABS: Albumin 3.5 g/dL (3.2-5.2); Anion Gap 9 mmol/L (2-11); CO2 Carbon Dioxide 22 mmol/L (22-32); Calcium 8.4 mg/dL (8.6-10.3); Chloride 109 mmol/L (101-111); Magnesium 2.6 mg/dL (1.9-2.7); Potassium 3.9 mmol/L (3.5-5.0); Sodium 140 mmol/L (135-145)
[2020-03-23 19:29] LABS: ALT 35 U/L (7-52); AST 38 U/L (13-39); Albumin/Globulin Ratio 1.1 (1-3); Alkaline Phosphatase 146 U/L (34-104); BUN/Creatinine Ratio 22.7 (8-20); Blood Urea Nitrogen 15 mg/dL (6-24); C Reactive Protein 180.72 mg/L (<8.01); EGFR African American 106.2 (>60); EGFR Non-African American 87.8 (>60); Globulin 3.3 g/dL (2-4); Glucose 88 mg/dL (70-100); Total Protein 6.8 g/dL (6.4-8.9)
[2020-03-23 21:50] LABS: Lipase 23 U/L (11.0-82.0)
[2020-03-23 21:53] LABS: Troponin I 0.21 ng/mL (<0.03)
[2020-03-24] MEDS: Meropenem 1 GM PREMIX(*) 1 GM/50 ML BAG IV SCH (03:59)
[2020-03-24 05:03] LABS: ABS Lymphocytes 0.8 10^3/ul (1.0-4.8); ABS Monocytes 0.7 10^3/ul (0-0.8); ABS Neutrophils 6.8 10^3/ul (1.5-7.7); Eosinophil % 0.2 %; Hematocrit 32 % (35-47); Hemoglobin 10.3 g/dL (12.0-16.0); Lymphocyte % 9.7 %; Mean Corpuscular HGB Conc 33 g/dL (31-36); Mean Corpuscular Hemoglobin 29 pg (27-31); Mean Corpuscular Volume 87 fL (80-97); Mean Platelet Volume 8.9 fL (7.4-10.4); Platelet Count 95 10^3/uL (150-450); Red Blood Count 3.62 10^6 /uL (3.70-4.87); Red Cell Distribution Width 13 % (10-15); White Blood Count 8.3 10^3/uL (3.5-10.8)
[2020-03-24 05:17] LABS: BUN/Creatinine Ratio 19.6 (8-20); Calcium 7.5 mg/dL (8.6-10.3); EGFR African American 128.4 (>60); EGFR Non-African American 106.1 (>60); Magnesium 1.9 mg/dL (1.9-2.7); Potassium 3.7 mmol/L (3.5-5.0)
[2020-03-24] MEDS: Heparin 5000 UNITS/ML 1 mL VIAL SUBCUT SCH (05:57)
[2020-03-24] MEDS: Lactated Ringers 1000 ml BAG 1,000 ML IV SCH ×2 (06:56→15:38)
[2020-03-24] MEDS: Mometasone/Formoter 100/5 MDI INH SCH ×2 (07:26→20:11)
[2020-03-24] MEDS ORDERED: Naloxone 0.4 mg VIAL 0.4 mg/ml 1 ml VIAL ONE (10:14)
[2020-03-24] MEDS ORDERED: Midazolam 5 mg/5 ml VIAL 1 mg/ml 5 ml VIAL (5 mg) ONE (10:14)
[2020-03-24] MEDS ORDERED: fentaNYL 100 mcg/2 ml 50 MCG/ML VIAL ONE (10:14)
[2020-03-24] MEDS ORDERED: Flumazenil 0.5 mg/5 ml 0.1 MG/ML 5 ml VIAL ONE (10:14)
[2020-03-24] MEDS: Ondansetron 4 mg VIAL 2 MG/ML 2 ml VIAL IV PRN (10:26)
[2020-03-24] MEDS: metroNIDAZOLE IV 500 MG/100ML 500 MG/100 ML BAG IVPB SCH (12:34)
[2020-03-24] MEDS: cefTRIAXone 2 GM ADDV.VIAL 2 GM in NS 0.9% 100 ml BAG 100 ML IV SCH (15:50)
[2020-03-25] MEDS: metroNIDAZOLE IV 500 MG/100ML 500 MG/100 ML BAG IVPB SCH ×3 (00:57→23:41)
[2020-03-25 07:47] LABS: Hematocrit 37 % (35-47); Hemoglobin 12.9 g/dL (12.0-16.0); Mean Corpuscular HGB Conc 35 g/dL (31-36); Mean Corpuscular Hemoglobin 30 pg (27-31); Mean Corpuscular Volume 85 fL (80-97); Mean Platelet Volume 9.2 fL (7.4-10.4); Platelet Count 141 10^3/uL (150-450); Red Blood Count 4.37 10^6 /uL (3.70-4.87); Red Cell Distribution Width 13 % (10-15); White Blood Count 10.3 10^3/uL (3.5-10.8)
[2020-03-25 07:59] LABS: Albumin 2.8 g/dL (3.2-5.2); Albumin/Globulin Ratio 0.9 (1-3); BUN/Creatinine Ratio 10.9 (8-20); EGFR African American 131.1 (>60); EGFR Non-African American 108.3 (>60); Globulin 3.1 g/dL (2-4); Magnesium 1.8 mg/dL (1.9-2.7); Potassium 3.3 mmol/L (3.5-5.0); Total Bilirubin 0.5 mg/dL (0.2-1.0); Total Protein 5.9 g/dL (6.4-8.9)
[2020-03-25] MEDS ORDERED: Potassium Chlor 20 meq TAB.ER PO ONE (08:16)
[2020-03-25] MEDS: Mometasone/Formoter 100/5 MDI INH SCH ×2 (08:25→20:21)
[2020-03-25] MEDS: cefTRIAXone 2 GM ADDV.VIAL 2 GM in NS 0.9% 100 ml BAG 100 ML IV SCH (15:34)
[2020-03-25] MEDS: Lactated Ringers 1000 ml BAG 1,000 ML IV SCH (15:36)
[2020-03-26 06:47] LABS: ABS Lymphocytes 0.6 10^3/ul (1.0-4.8); Eosinophil % 0.1 %; Hematocrit 33 % (35-47); Hemoglobin 11.3 g/dL (12.0-16.0); Mean Corpuscular HGB Conc 34 g/dL (31-36); Mean Corpuscular Hemoglobin 29 pg (27-31); Mean Corpuscular Volume 85 fL (80-97); Mean Platelet Volume 8.7 fL (7.4-10.4); Platelet Count 116 10^3/uL (150-450); Red Blood Count 3.88 10^6 /uL (3.70-4.87); Red Cell Distribution Width 13 % (10-15); White Blood Count 15.6 10^3/uL (3.5-10.8)
[2020-03-26 06:57] LABS: BUN/Creatinine Ratio 12.1 (8-20); Calcium 7.9 mg/dL (8.6-10.3); EGFR African American 123.3 (>60); EGFR Non-African American 101.9 (>60); Potassium 3.6 mmol/L (3.5-5.0)
[2020-03-26] MEDS: Mometasone/Formoter 100/5 MDI INH SCH ×2 (08:26→19:11)
[2020-03-26] MEDS: metroNIDAZOLE IV 500 MG/100ML 500 MG/100 ML BAG IVPB SCH ×2 (11:49→23:51)
[2020-03-26] MEDS ORDERED: Iohexol 300 (CONTRAST) 10 ML SDV IV ONE (14:25)
[2020-03-26] MEDS: cefTRIAXone 2 GM ADDV.VIAL 2 GM in NS 0.9% 100 ml BAG 100 ML IV SCH (16:00)
[2020-03-26] MEDS ORDERED: fentaNYL 100 mcg/2 ml 50 MCG/ML VIAL ONE (16:35)
[2020-03-26] MEDS ORDERED: Naloxone 0.4 mg VIAL 0.4 mg/ml 1 ml VIAL ONE (16:35)
[2020-03-26] MEDS ORDERED: Flumazenil 0.5 mg/5 ml 0.1 MG/ML 5 ml VIAL ONE (16:35)
[2020-03-26] MEDS ORDERED: Midazolam 2 mg/2 ml VIAL 1 mg/ml 2 ml VIAL (2 mg) ONE (16:35)
[2020-03-27 06:15] LABS: ABS Eosinophils 0.1 10^3/ul (0-0.6); ABS Lymphocytes 1.4 10^3/ul (1.0-4.8); ABS Monocytes 1.4 10^3/ul (0-0.8); ABS Neutrophils 8.1 10^3/ul (1.5-7.7); Eosinophil % 0.7 %; Hematocrit 32 % (35-47); Hemoglobin 10.8 g/dL (12.0-16.0); Lymphocyte % 13.1 %; Mean Corpuscular HGB Conc 34 g/dL (31-36); Mean Corpuscular Hemoglobin 29 pg (27-31); Mean Corpuscular Volume 86 fL (80-97); Mean Platelet Volume 8.5 fL (7.4-10.4); Platelet Count 151 10^3/uL (150-450); Red Blood Count 3.71 10^6 /uL (3.70-4.87); Red Cell Distribution Width 14 % (10-15); White Blood Count 10.9 10^3/uL (3.5-10.8)
[2020-03-27 06:19] LABS: Calcium 7.9 mg/dL (8.6-10.3); Potassium 3.2 mmol/L (3.5-5.0)
[2020-03-27 06:24] LABS: BUN/Creatinine Ratio 17.2 (8-20); EGFR African American 123.3 (>60); EGFR Non-African American 101.9 (>60)
[2020-03-27] MEDS: Mometasone/Formoter 100/5 MDI INH SCH ×2 (09:08→19:52)
[2020-03-27] MEDS: metroNIDAZOLE IV 500 MG/100ML 500 MG/100 ML BAG IVPB SCH ×2 (11:44→23:28)
[2020-03-27 15:45] LABS: HIT ELISA < 0.075 OD (<0.400)
[2020-03-27] MEDS: cefTRIAXone 2 GM ADDV.VIAL 2 GM in NS 0.9% 100 ml BAG 100 ML IV SCH (16:16)
[2020-03-28 07:00] LABS: Hematocrit 33 % (35-47); Mean Corpuscular HGB Conc 34 g/dL (31-36); Mean Corpuscular Hemoglobin 29 pg (27-31); Mean Corpuscular Volume 85 fL (80-97); Mean Platelet Volume 8.7 fL (7.4-10.4); Platelet Count 207 10^3/uL (150-450); Red Blood Count 3.81 10^6 /uL (3.70-4.87); Red Cell Distribution Width 13 % (10-15); White Blood Count 8.3 10^3/uL (3.5-10.8)
[2020-03-28 07:20] LABS: BUN/Creatinine Ratio 13.7 (8-20); Calcium 7.9 mg/dL (8.6-10.3); EGFR Non-African American 118.2 (>60)
[2020-03-28 07:28] LABS: Potassium 3.4 mmol/L (3.5-5.0)
[2020-03-28 07:58] LABS: ABS Eosinophils 0.1 10^3/ul (0-0.6); ABS Lymphocytes 1.2 10^3/ul (1.0-4.8); Eosinophil % 1.5 %; Lymphocyte % 14.5 %; Nucleated Red Blood Cells % 0.1
[2020-03-28] MEDS ORDERED: Potassium Chlor 20 meq TAB.ER PO ONE (07:58)
[2020-03-28] MEDS: Mometasone/Formoter 100/5 MDI INH SCH (08:03)
[2020-03-28] MEDS ORDERED: Potassium Chloride LIQUID 20 MEQ/15 ML LIQUID PO ONE (08:20)
[2020-03-28] MEDS ORDERED: Furosemide 20 mg/2 ml IV VIAL IV ONE (10:52)
[2020-03-28] MEDS ORDERED: Enoxaparin 40 MG/0.4 ML SYR SUBCUT SCH (11:00)
[2020-03-28] MEDS: metroNIDAZOLE IV 500 MG/100ML 500 MG/100 ML BAG IVPB SCH (11:28)
[2020-03-28 11:45] VITALS: BP 162/72
== END 2020-03-28 16:15 | disposition home or self-care (01) | DRG 871 ==
LOC: ED 17:17 → MEDTELE 21:27 → ICU 03-23 19:02 → MEDTELE 03-24 15:16
PROVIDERS: ADMIT Pediatrics; ATTEND Internal Medicine